=== PATIENT | female | born 1960 | race Two or more races ===

== ENCOUNTER 2022-10-28 18:18 | Emergency (ER) | payer SELFPAY ==
[~2022-10-28] VITALS: Ht 157.5 cm; Wt 56.8 kg
[2022-10-28 18:21] VITALS: BP 114/69; PULSE 66; RESP 18; TEMP 97.8
[2022-10-28] MEDS ORDERED: CLON0.1T2 PO (18:27)
[2022-10-28] MEDS ORDERED: LAMO25TA36 PO (18:28)
== END 2022-10-28 22:37 | disposition left against medical advice (07) ==
LOC: EMS 18:24
DX: R45.851 Suicidal ideations (principal); Z53.21 Procedure and treatment not carried out due to patient leaving prior to being seen by health care provider
CPT/HCPCS: 99281; Z7502

== ENCOUNTER 2022-12-15 18:32 | Emergency (ER) | payer MEDICAID ==
[~2022-12-15] VITALS: Ht 157.5 cm; Wt 50.0 kg
[~2022-12-15 18:32] MED LIST: CLON0.1T2 PO; LAMO25TA36 PO
[2022-12-15 18:41] VITALS: TEMP 97.5
[2022-12-15 21:11] VITALS: BP 169/88; PULSE 74; RESP 18
[2022-12-15] MEDS ORDERED: PERM60CR19 TP (21:24)
[2022-12-15] MEDS ORDERED: DIPH50CA37 PO (21:24)
[2022-12-15] MEDS ORDERED: ACET-66 PO (21:24)
== END 2022-12-15 22:10 | disposition home or self-care (01) ==
LOC: EMS 18:33
DX: L30.9 Dermatitis, unspecified (principal); F31.9 Bipolar disorder, unspecified; I10 Essential (primary) hypertension; F20.9 Schizophrenia, unspecified; F12.90 Cannabis use, unspecified, uncomplicated; Z90.49 Acquired absence of other specified parts of digestive tract; Z98.890 Other specified postprocedural states
CPT/HCPCS: 99282; Z7502

== ENCOUNTER 2023-02-19 17:30 | Emergency (ER) | payer MEDICAID, OTHER ==
[~2023-02-19] VITALS: Ht 157.5 cm; Wt 45.5 kg
[~2023-02-19 17:30] MED LIST changes: +ACET-66 PO; +DIPH50CA37 PO; +PERM60CR19 TP
[2023-02-19] MEDS ORDERED: ACETAMINOPHEN 325 MG TABLET PO ONE (18:45)
[2023-02-19 20:00] VITALS: BP 137/74; PULSE 91; RESP 18; TEMP 97.3
== END 2023-02-19 21:03 | disposition home or self-care (01) ==
LOC: EMS 18:25
DX: S52.501A Unspecified fracture of the lower end of right radius, initial encounter for closed fracture (principal); F31.9 Bipolar disorder, unspecified; I10 Essential (primary) hypertension; F20.9 Schizophrenia, unspecified; F12.90 Cannabis use, unspecified, uncomplicated; Z90.49 Acquired absence of other specified parts of digestive tract; Z98.890 Other specified postprocedural states; W19.XXXA Unspecified fall, initial encounter; Y93.89 Activity, other specified; Y92.89 Other specified places as the place of occurrence of the external cause; Y99.8 Other external cause status
CPT/HCPCS: 99284; 73110-TC; 73130-TC; Z7502; Z7610

== ENCOUNTER 2023-02-25 13:10 | Emergency (ER) | payer OTHER ==
[~2023-02-25] VITALS: Ht 157.5 cm; Wt 54.5 kg
[~2023-02-25 13:10] MED LIST changes: -PERM60CR19 TP
[2023-02-25 13:17] VITALS: TEMP 98
[2023-02-25] MEDS ORDERED: IBUPROFEN 600 MG TABLET PO ONE (15:30)
[2023-02-25] MEDS ORDERED: ACET-2080 PO (15:30)
[2023-02-25] MEDS ORDERED: IBUP-1554 PO (15:30)
[2023-02-25] MEDS ORDERED: ACETAMINOPHEN/CODEINE 300-30 MG TABLET PO ONE (15:30)
[2023-02-25 15:44] VITALS: BP 127/81; PULSE 87; RESP 18
== END 2023-02-25 15:55 | disposition home or self-care (01) ==
LOC: EMS 13:10
DX: S52.501A Unspecified fracture of the lower end of right radius, initial encounter for closed fracture (principal); S60.212A Contusion of left wrist, initial encounter; F25.9 Schizoaffective disorder, unspecified; F31.9 Bipolar disorder, unspecified; I10 Essential (primary) hypertension; F12.90 Cannabis use, unspecified, uncomplicated; Z90.49 Acquired absence of other specified parts of digestive tract; Z98.890 Other specified postprocedural states; W01.0XXA Fall on same level from slipping, tripping and stumbling without subsequent striking against object, initial encounter; Y93.89 Activity, other specified; Y92.89 Other specified places as the place of occurrence of the external cause; Y99.8 Other external cause status
CPT/HCPCS: 99283

== ENCOUNTER 2023-05-30 17:20 | Emergency (ER) | payer OTHER ==
[~2023-05-30] VITALS: Ht 157.5 cm; Wt 52.3 kg
[~2023-05-30 17:20] MED LIST changes: +ACET-2080 PO; +IBUP-1554 PO
[2023-05-30 21:16] VITALS: BP 150/87; PULSE 65; RESP 18; TEMP 97.9
[2023-05-30] MEDS: IBUPROFEN 600 MG TABLET PO ONE (22:56)
[2023-05-30] MEDS: BACITRACIN 0.9 GM PACKET OINTMENT TP ONE (22:56)
== END 2023-05-30 23:00 | disposition home or self-care (01) ==
LOC: EMS 17:20
DX: S52.511A Displaced fracture of right radial styloid process, initial encounter for closed fracture (principal); S61.211A Laceration without foreign body of left index finger without damage to nail, initial encounter; H11.32 Conjunctival hemorrhage, left eye; F20.9 Schizophrenia, unspecified; F31.9 Bipolar disorder, unspecified; I10 Essential (primary) hypertension; F12.90 Cannabis use, unspecified, uncomplicated; Z90.49 Acquired absence of other specified parts of digestive tract; Z98.890 Other specified postprocedural states; W19.XXXA Unspecified fall, initial encounter; Y93.89 Activity, other specified; Y92.89 Other specified places as the place of occurrence of the external cause; Y99.8 Other external cause status
CPT/HCPCS: 99283

== ENCOUNTER 2023-07-10 15:51 | Inpatient (IN) | payer MEDICAID, OTHER ==
[~2023-07-10] VITALS: Ht 157.5 cm; Wt 52.8 kg
[2023-07-10] MEDS ORDERED: QUEtiapine FUMARATE 100 MG TABLET PO PRN (18:30)
[2023-07-10 18:41] LABS: BASOPHILS % (AUTO) 0.6 % (0.0-2.0); EOSINOPHILS % (AUTO) 2.6 % (1.0-6.0); HEMATOCRIT 38.3 % (36-46); HEMOGLOBIN 12.8 g/dL (12.0-16.0); LYMPHOCYTES % (AUTO) 23.3 % (22.0-44.0); MEAN CORPUSCULAR HEMOGLOBIN 30.7 pg (26.0-34.0); MEAN CORPUSCULAR HGB CONC 33.5 G/dL (31.0-37.0); MEAN CORPUSCULAR VOLUME 92 fL (80-100); MONOCYTES # (AUTO) 0.4 K/uL (0.1-1.0); MONOCYTES % (AUTO) 9.9 % (2.0-9.0); NEUTROPHILS # (AUTO) 2.6 K/uL (1.8-7.7); NEUTROPHILS % (AUTO) 63.6 % (40.0-70.0); PLATELET COUNT (AUTO) 266 K/uL (150-450); RED BLOOD CELL COUNT(AUTO) 4.17 MIL/uL (4.00-5.20); RED CELL DISTRIBUTION WIDTH 13.8 % (11.5-14.5); WHITE BLOOD COUNT (AUTO) 4.1 K/uL (4.5-11.0)
[2023-07-10 18:49] LABS: ANION GAP 9 mmol/L (8-16); CALCIUM, TOTAL 8.9 mg/dL (8.8-10.5); CARBON DIOXIDE 28 mmol/L (22-29); CHLORIDE 102 mmol/L (98-107); CREATININE 0.98 mg/dL (0.60-1.30); GLOMERULAR FILTR. RATE CALC 57 mL/min (>60); GLUCOSE,RANDOM 105 mg/dL (70-110); POTASSIUM 3.8 mmol/L (3.5-5.1); SODIUM SERUM 139 mmol/L (136-145); UREA NITROGEN, BLOOD 21 mg/dL (7-18)
[2023-07-10 18:55] LABS: ALANINE AMINOTRANSFERASE 31 U/L (12-78); ALBUMIN 3.3 g/dL (3.4-5.0); ALKALINE PHOSPHATASE 140 U/L (46-116); ASPARTATE AMINOTRANSFERASE 29 U/L (15-37); BILIRUBIN,TOTAL 0.4 mg/dL (0.1-1.0); TOTAL PROTEIN, SERUM 7.4 g/dL (6.4-8.2)
[2023-07-10 19:00] LABS: ALCOHOL, BLOOD (SERUM) < 3 mg/dL (0-10)
[2023-07-10 20:00] LABS: COVID AG,FIA SOURCE NASAL SWAB
[2023-07-10] MEDS: LORazepam 2 MG TABLET PO PRN (20:17)
[2023-07-10 20:31] LABS: SARS-COV2 (COVID) ANTIGEN,FIA Negative (Negative)
[2023-07-10] MEDS ORDERED: ACETAMINOPHEN 325 MG TABLET PO PRN (22:00)
[2023-07-10] MEDS ORDERED: CloNIDine HCL 0.1 MG TABLET PO PRN (22:00)
[2023-07-10] MEDS ORDERED: PETROLATUM,WHITE 28 GM JELLY TP PRN (22:00)
[2023-07-10] MEDS ORDERED: MAG HYDROX/ALUMINUM HYD/SIMETH ES 30 ML SUSPENSION UDCUP PO PRN (22:00)
[2023-07-10] MEDS ORDERED: IBUPROFEN 400 MG TABLET PO PRN (22:00)
[2023-07-10] MEDS ORDERED: LOPERAMIDE HCL 2 MG CAPSULE PO PRN (22:00)
[2023-07-10] MEDS ORDERED: NICOTINE 14 MG/24 HOUR PATCH TD PRN (22:00)
[2023-07-10] MEDS ORDERED: MAGNESIUM HYDROXIDE SUSPENSION 30 ML UDCUP PO PRN (22:00)
[2023-07-10] MEDS ORDERED: ALBUTEROL SULFATE HFA 90 MCG/PUFF 8 GM INHALER IH PRN (22:00)
[2023-07-10] MEDS ORDERED: DOCUSATE SODIUM 100 MG CAPSULE PO PRN (22:00)
[2023-07-10] MEDS ORDERED: GuaiFENesin/D-METHORPHAN [SUGAR-FREE] 200-20MG/10 ML SYRUP UDCUP PO PRN (22:00)
[2023-07-11 03:13] VITALS: BP 164/87; PULSE 88; RESP 18; TEMP 97; O2SAT 99
[2023-07-11] MEDS ORDERED: PNEUMOCOCCAL VACCINE POLYVALENT 0.5 ML SYRINGE [PPSV23] IM. ONE (03:30)
[2023-07-11 07:27] LABS: BASOPHILS % (AUTO) 0.9 % (0.0-2.0); EOSINOPHILS % (AUTO) 5.5 % (1.0-6.0); HEMOGLOBIN 13.3 g/dL (12.0-16.0); LYMPHOCYTES # (AUTO) 1.2 K/uL (1.0-4.8); LYMPHOCYTES % (AUTO) 33.9 % (22.0-44.0); MEAN CORPUSCULAR HEMOGLOBIN 30.9 pg (26.0-34.0); MEAN CORPUSCULAR VOLUME 91 fL (80-100); MONOCYTES # (AUTO) 0.4 K/uL (0.1-1.0); NEUTROPHILS # (AUTO) 1.6 K/uL (1.8-7.7); NEUTROPHILS % (AUTO) 47.7 % (40.0-70.0); PLATELET COUNT (AUTO) 245 K/uL (150-450); RED BLOOD CELL COUNT(AUTO) 4.29 MIL/uL (4.00-5.20); WHITE BLOOD COUNT (AUTO) 3.4 K/uL (4.5-11.0)
[2023-07-11 07:51] LABS: HEMOGLOBIN A1C 5.8 % (3.8-5.6)
[2023-07-11 07:54] LABS: ALANINE AMINOTRANSFERASE 27 U/L (12-78); ALKALINE PHOSPHATASE 127 U/L (46-116); ANION GAP 8 mmol/L (8-16); ASPARTATE AMINOTRANSFERASE 26 U/L (15-37); BILIRUBIN,TOTAL 0.7 mg/dL (0.1-1.0); CALCIUM, TOTAL 8.2 mg/dL (8.8-10.5); CARBON DIOXIDE 27 mmol/L (22-29); CHLORIDE 102 mmol/L (98-107); CREATININE 0.75 mg/dL (0.60-1.30); GLOMERULAR FILTR. RATE CALC > 60 mL/min (>60); GLUCOSE,RANDOM 112 mg/dL (70-110); POTASSIUM 3.6 mmol/L (3.5-5.1); SODIUM SERUM 137 mmol/L (136-145); THYROID STIMULATING HORMONE 0.82 uIU/mL (0.36-3.74); TOTAL PROTEIN, SERUM 7.1 g/dL (6.4-8.2); UREA NITROGEN, BLOOD 16 mg/dL (7-18)
[2023-07-11 09:04] LABS: CHOL/HDL RATIO 2.4 (3.9-5.7); CHOLESTEROL 180 mg/dL (131-200); HDL CHOLESTEROL 75 mg/dL (40-60); LDL CHOL (CALC.) 93 mg/dL (0-130); TRIGLYCERIDES 59 mg/dL (15-150)
[2023-07-11] MEDS ORDERED: MIRT7.5T11 PO (14:28)
[2023-07-11 20:34] VITALS: BP 124/81; PULSE 72; RESP 18; TEMP 97.9; O2SAT 97
[2023-07-11] MEDS: MIRTAZAPINE 15 MG TABLET PO SCH (20:56)
[2023-07-11] MEDS: ZOLPIDEM TARTRATE 10 MG TABLET PO PRN (21:22)
[2023-07-12 09:39] VITALS: BP 135/91; PULSE 93; RESP 18; TEMP 97.6; O2SAT 99
[2023-07-12] MEDS: ONDANSETRON HCL 4 MG TABLET PO PRN (15:27)
[2023-07-12 22:01] VITALS: BP 135/90; PULSE 93; RESP 18; TEMP 97.6; O2SAT 99
[2023-07-13 10:50] VITALS: BP 151/84; PULSE 79; RESP 19; TEMP 97; O2SAT 98
[2023-07-13] MEDS: RisperiDONE 1 MG TABLET PO SCH (21:22)
[2023-07-13 21:40] VITALS: BP 127/76; PULSE 98; RESP 18; TEMP 97.6; O2SAT 96
[2023-07-14 09:55] VITALS: BP 119/72; PULSE 75; RESP 18; TEMP 97.8; O2SAT 99
[2023-07-14 22:01] VITALS: BP 99/53; PULSE 98; RESP 18; TEMP 98.1; O2SAT 99
[2023-07-15 11:17] VITALS: BP 106/63; PULSE 72; RESP 18; TEMP 97.3; O2SAT 99
[2023-07-15 22:03] VITALS: BP 137/79; PULSE 93; RESP 18; TEMP 98.1; O2SAT 98
[2023-07-16 09:14] VITALS: BP 136/73; PULSE 65; RESP 17; TEMP 96.5; O2SAT 95
[2023-07-16] MEDS ORDERED: RISP1TAB48 PO (17:43)
[2023-07-16] MEDS ORDERED: MIRT-89 PO (17:43)
== END 2023-07-16 19:02 | disposition home or self-care (01) | DRG 750 ==
LOC: EMS 18:44 → 3EI 20:39
PROVIDERS: ADMIT Psychiatry & Neurology Psychiatry; ATTEND Psychiatry & Neurology Psychiatry
PROC: GZHZZZZ Group Psychotherapy (ICD-10-PCS; principal; 2023-07-12)
DX: F25.1 Schizoaffective disorder, depressive type (principal); R45.851 Suicidal ideations; Z20.822 Contact with and (suspected) exposure to COVID-19; F15.10 Other stimulant abuse, uncomplicated; F12.10 Cannabis abuse, uncomplicated; I10 Essential (primary) hypertension; D72.819 Decreased white blood cell count, unspecified; R73.9 Hyperglycemia, unspecified; Z90.49 Acquired absence of other specified parts of digestive tract; Z98.891 History of uterine scar from previous surgery
CPT/HCPCS: 80053; 80061; 83036; 84443; 85025; 99285; G0480; Q0162

== ENCOUNTER 2023-07-30 20:30 | Emergency (ER) | payer MEDICAID, OTHER ==
[~2023-07-30] VITALS: Ht 162.6 cm; Wt 65.0 kg
[~2023-07-30 20:30] MED LIST changes: -ACET-2080 PO; -ACET-66 PO; -CLON0.1T2 PO; -DIPH50CA37 PO; -IBUP-1554 PO; -LAMO25TA36 PO; +MIRT-89 PO; +RISP1TAB48 PO
[2023-07-30 20:39] VITALS: TEMP 98
[2023-07-30 22:39] LABS: BASOPHILS % (AUTO) 0.4 % (0.0-2.0); EOSINOPHILS % (AUTO) 5.2 % (1.0-6.0); HEMATOCRIT 37.1 % (36-46); HEMOGLOBIN 12.2 g/dL (12.0-16.0); LYMPHOCYTES # (AUTO) 1.7 K/uL (1.0-4.8); MEAN CORPUSCULAR HEMOGLOBIN 30.1 pg (26.0-34.0); MEAN CORPUSCULAR VOLUME 91 fL (80-100); MONOCYTES # (AUTO) 0.6 K/uL (0.1-1.0); MONOCYTES % (AUTO) 9.5 % (2.0-9.0); NEUTROPHILS # (AUTO) 3.4 K/uL (1.8-7.7); NEUTROPHILS % (AUTO) 56.9 % (40.0-70.0); PLATELET COUNT (AUTO) 288 K/uL (150-450); RED BLOOD CELL COUNT(AUTO) 4.06 MIL/uL (4.00-5.20); RED CELL DISTRIBUTION WIDTH 14.1 % (11.5-14.5)
[2023-07-30 22:44] LABS: ANION GAP 11 mmol/L (8-16); CARBON DIOXIDE 25 mmol/L (22-29); CHLORIDE 106 mmol/L (98-107); CREATININE 1.02 mg/dL (0.60-1.30); GLOMERULAR FILTR. RATE CALC 55 mL/min (>60); GLUCOSE,RANDOM 110 mg/dL (70-110); POTASSIUM 3.9 mmol/L (3.5-5.1); SODIUM SERUM 142 mmol/L (136-145); UREA NITROGEN, BLOOD 21 mg/dL (7-18)
[2023-07-30 22:53] LABS: ALCOHOL, BLOOD (SERUM) < 3 mg/dL (0-10)
[2023-07-30 23:09] LABS: ALANINE AMINOTRANSFERASE 45 U/L (12-78); ALBUMIN 3.5 g/dL (3.4-5.0); ALKALINE PHOSPHATASE 148 U/L (46-116); ASPARTATE AMINOTRANSFERASE 49 U/L (15-37); BILIRUBIN,TOTAL 0.8 mg/dL (0.1-1.0); CREATINE KINASE, TOTAL ONLY 746 U/L (26-192); TOTAL PROTEIN, SERUM 7.5 g/dL (6.4-8.2)
[2023-07-31] MEDS: ACETAMINOPHEN 500 MG TABLET PO ONE (03:11)
[2023-07-31] MEDS: CEPHALEXIN MONOHYDRATE 500 MG CAPSULE PO ONE (03:11)
[2023-07-31] MEDS: RisperiDONE 1 MG TABLET PO ONE (03:11)
[2023-07-31] MEDS: BACITRACIN 0.9 GM PACKET OINTMENT TP ONE (03:12)
[2023-07-31] MEDS: LORazepam 2 MG TABLET PO ONE (03:12)
[2023-07-31] MEDS: AMMONIA 1 EA AMP IH ONE (07:35)
[2023-07-31 14:09] VITALS: BP 137/70; PULSE 74; RESP 18
== END 2023-07-31 14:11 | disposition home or self-care (01) ==
LOC: EMS 20:31
DX: S52.611A Displaced fracture of right ulna styloid process, initial encounter for closed fracture (principal); S61.211A Laceration without foreign body of left index finger without damage to nail, initial encounter; F25.1 Schizoaffective disorder, depressive type; F15.10 Other stimulant abuse, uncomplicated; F12.90 Cannabis use, unspecified, uncomplicated; Z90.49 Acquired absence of other specified parts of digestive tract; Z98.890 Other specified postprocedural states; W26.8XXA Contact with other sharp object(s), not elsewhere classified, initial encounter; Y93.89 Activity, other specified; Y92.89 Other specified places as the place of occurrence of the external cause; Y99.8 Other external cause status
CPT/HCPCS: 99285; 80053; 82550; 85025; 36415; 73110; 73140; 94640; G0480

== ENCOUNTER 2023-07-31 20:35 | Emergency (ER) | payer OTHER ==
[~2023-07-31] VITALS: Ht 157.5 cm; Wt 50.0 kg
[2023-07-31 21:17] LABS: MONOCYTES # (AUTO) 0.4 K/uL (0.1-1.0); RED BLOOD CELL COUNT(AUTO) 4.26 MIL/uL (4.00-5.20)
[2023-07-31 21:20] LABS: BASOPHILS % (AUTO) 0.6 % (0.0-2.0); EOSINOPHILS % (AUTO) 6.4 % (1.0-6.0); HEMATOCRIT 39.5 % (36-46); HEMOGLOBIN 13.2 g/dL (12.0-16.0); LYMPHOCYTES # (AUTO) 1.2 K/uL (1.0-4.8); LYMPHOCYTES % (AUTO) 30.4 % (22.0-44.0); MEAN CORPUSCULAR HEMOGLOBIN 30.9 pg (26.0-34.0); MEAN CORPUSCULAR HGB CONC 33.4 G/dL (31.0-37.0); MEAN CORPUSCULAR VOLUME 93 fL (80-100); MONOCYTES % (AUTO) 9.5 % (2.0-9.0); NEUTROPHILS % (AUTO) 53.1 % (40.0-70.0); PLATELET COUNT (AUTO) 282 K/uL (150-450); WHITE BLOOD COUNT (AUTO) 3.8 K/uL (4.5-11.0)
[2023-07-31 21:23] LABS: ANION GAP 8 mmol/L (8-16); CALCIUM, TOTAL 8.8 mg/dL (8.8-10.5); CARBON DIOXIDE 27 mmol/L (22-29); CHLORIDE 105 mmol/L (98-107); CREATININE 1.07 mg/dL (0.60-1.30); GLOMERULAR FILTR. RATE CALC 52 mL/min (>60); GLUCOSE,RANDOM 78 mg/dL (70-110); POTASSIUM 3.6 mmol/L (3.5-5.1); SODIUM SERUM 140 mmol/L (136-145); UREA NITROGEN, BLOOD 17 mg/dL (7-18)
[2023-07-31 21:31] LABS: ALANINE AMINOTRANSFERASE 41 U/L (12-78); ALBUMIN 3.4 g/dL (3.4-5.0); ALCOHOL, BLOOD (SERUM) < 3 mg/dL (0-10); ALKALINE PHOSPHATASE 145 U/L (46-116); ASPARTATE AMINOTRANSFERASE 36 U/L (15-37); BILIRUBIN,TOTAL 0.9 mg/dL (0.1-1.0); TOTAL PROTEIN, SERUM 7.6 g/dL (6.4-8.2)
[2023-07-31 21:39] LABS: RBC MORPHOLOGY COMMENT NORMAL RBC MORPH
[2023-07-31 23:12] VITALS: BP 110/60; PULSE 92; RESP 16; TEMP 98.1
[2023-07-31] MEDS: RisperiDONE 1 MG TABLET PO ONE (23:46)
== END 2023-08-01 00:16 | disposition home or self-care (01) ==
LOC: EMS 20:39
DX: S52.612A Displaced fracture of left ulna styloid process, initial encounter for closed fracture (principal); F25.1 Schizoaffective disorder, depressive type; R45.851 Suicidal ideations; F12.90 Cannabis use, unspecified, uncomplicated; F15.90 Other stimulant use, unspecified, uncomplicated; Z90.49 Acquired absence of other specified parts of digestive tract; Z98.890 Other specified postprocedural states; I10 Essential (primary) hypertension; F31.9 Bipolar disorder, unspecified; X58.XXXA Exposure to other specified factors, initial encounter; Y93.89 Activity, other specified; Y92.89 Other specified places as the place of occurrence of the external cause; Y99.9 Unspecified external cause status
CPT/HCPCS: 99284; 80053; 85025; 36415; G0480

== ENCOUNTER 2023-11-12 19:32 | Emergency (ER) | payer OTHER ==
[~2023-11-12] VITALS: Ht 157.5 cm; Wt 51.4 kg
[2023-11-12 19:39] VITALS: TEMP 97.6
[2023-11-12] MEDS ORDERED: MIRT-89 PO (19:43)
[2023-11-12] MEDS ORDERED: LORA-999 PO (19:43)
[2023-11-12] MEDS ORDERED: PERM60CR4 TP (21:20)
[2023-11-12] MEDS: LORATADINE 10 MG TABLET PO ONE (21:32)
[2023-11-12 21:40] VITALS: BP 169/99; PULSE 95; RESP 16
[2023-11-12] MEDS ORDERED: PERM60CR19 TP (21:44)
== END 2023-11-12 22:31 | disposition home or self-care (01) ==
LOC: EMS 19:32
DX: B86 Scabies (principal); I10 Essential (primary) hypertension; F12.90 Cannabis use, unspecified, uncomplicated; F15.10 Other stimulant abuse, uncomplicated
CPT/HCPCS: 99282; Z7502; Z7610

== ENCOUNTER 2023-11-20 00:03 | Emergency (ER) | payer OTHER ==
[~2023-11-20] VITALS: Ht 157.5 cm; Wt 52.3 kg
[~2023-11-20 00:03] MED LIST changes: +LORA-999 PO; +PERM60CR19 TP; -RISP1TAB48 PO
[2023-11-20 00:10] VITALS: TEMP 98
[2023-11-20] MEDS: PERTUSS(ACELL),DIPH,TET/PF 0.5 ML SYRINGE [ADULT] IM. ONE (01:33)
[2023-11-20] MEDS: TraMADol HCL 50 MG TABLET PO ONE (01:34)
[2023-11-20] MEDS: BACITRACIN 28 GM OINTMENT TP ONE (01:34)
[2023-11-20 02:01] VITALS: BP 138/98; PULSE 65; RESP 19; O2SAT 100
== END 2023-11-20 02:03 | disposition home or self-care (01) ==
LOC: EMS 00:03
DX: S90.112A Contusion of left great toe without damage to nail, initial encounter (principal); F41.9 Anxiety disorder, unspecified; F31.9 Bipolar disorder, unspecified; I10 Essential (primary) hypertension; F20.9 Schizophrenia, unspecified; F12.90 Cannabis use, unspecified, uncomplicated; F15.90 Other stimulant use, unspecified, uncomplicated; Z90.49 Acquired absence of other specified parts of digestive tract; Z98.890 Other specified postprocedural states; W04.XXXA Fall while being carried or supported by other persons, initial encounter; Y93.89 Activity, other specified; Y92.89 Other specified places as the place of occurrence of the external cause; Y99.8 Other external cause status
CPT/HCPCS: 90471; 90715; 99283